=== PATIENT | male | born 1955 | race African-American/Black ===

== ENCOUNTER 2019-09-15 16:37 | Emergency (ER) | payer OTHER ==
--- NOTE | 2019-09-15 16:49 | PDOC ---
Rapid Medical Evaluation Chief Complaint: Blood Pressure Problem Time Seen by Provider: 09/15/19 16:46 Medical Evaluation: Allergies Allergy/AdvReac Type Severity Reaction Status Date / Time No Known Allergies Allergy Verified 09/15/19 16:45 09/15/19 16:46 This patient received a in-person evaluation in triage cc/HPI: sent from dental office because of elevated blood pressure during tooth extraction. Complaining of lightheadedness. Non compliance with b/p medication at present due to insurance issue. Took it last 3 weeks ago PE: NAD unlabored breathing no pedal edema orders:none This patient will proceed to ED for further evaluation Discharge Disposition - Diagnosis HTN (hypertension), UTI (urinary tract infection) - Discharge Dispostion Disposition: HOME Condition at time of disposition: Improved - Prescriptions Prescriptions: Amlodipine Besylate 10 mg PO DAILY #30 tablet Cephalexin Monohydrate [Keflex -] 500 mg PO BID 7 Days #14 capsule - Referrals - Patient Instructions Printed Discharge Instructions: Urinary Tract Infection, DI for High Blood Pressure, How to Monitor Your Blood Pressure at Home Additional Instructions: Follow up with your primary care doctor within 3 days regarding your Emergency Room visit. Your care is not complete until you follow up. You have a urinary tract infection. I have prescribed you an antibiotic to take. Take as advised on label. Do not stop early even if you are feeling better. Call your doctor about refilling your prescription. In the mean time I have sent you a short term prescription for your Amlodipine. 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 If your doctor does not respond via phone you should go to the office. Measure your blood pressure morning and night at the same times every day. Record these measurements in a diary and bring this diary to your primary care doctor. This is a much more accurate method of measuring your blood pressure. Return to the Emergency Department for increasing pain, increasing headache, fever, vomiting, chest pain, shortness of breath, increasing lower extremity swelling, blood in urine, weakness, numbness, tingling, visual changes, feeling off-balance or any other new, worsening or concerning symptoms. - Post Discharge Activity Work/School Note: Back to Work
[2019-09-15 16:50] VITALS: PULSE 93; TEMP 98.5; BMI 24.7
[2019-09-15] MEDS ORDERED: amLODIPine BESYLATE 10 MG TABLET (FP) PO ONE (17:14)
--- NOTE | 2019-09-15 17:14 | PDOC ---
History of Present Illness - General Chief Complaint: Blood Pressure Problem Stated Complaint: HYPERTENSION Time Seen by Provider: 09/15/19 16:46 History Source: Patient Exam Limitations: No Limitations - History of Present Illness Initial Comments: 63-year-old male with past medical history of hypertension presented to the emergency department for a hypertensive episode while at the dentist today. Pt reported he had a planned molar extraction today and while attempting to pull out one of the teeth he felt an intense amount of pain and had a hypertensive episode with systolics 180s. This concerned the dentist, prompting them to send him to the emergency department. Patient reported he was asymptomatic at the time, but shortly after that developed lightheadedness but she still feeling now. Patient reported he has been unable to access his antihypertensive medication for the last three weeks, because his primary care doctor has not been responding to him in response to a refill. He reported he is taking Amlodipine 10 mg a day, recently was taken off propranolol x4 months ago. He denied chest pain, shortness of breath, abdominal pain, back pain, lower extremity swelling, headache. ROS General: denied fever, chills, generalized weakness. HEENT: denied sore throat, rhinorrhea, ear pain. Cardiovascular: admitted to [facility]. denied chest pain, palpitations, syncope, diaphoresis. Respiratory: denied shortness of breath, cough, sputum production, hemoptysis. Gastrointestinal: denied abdominal pain, nausea, vomiting, diarrhea, constipation, blood in stool. Genitourinary: denied dysuria, increased urinary frequency, hematuria, urinary incontinence, flank pain. Back: denied back pain. Musculoskeletal: denied joint pain, muscle pain, joint swelling. Neurological: denied headache, dizziness, numbness, tingling, weakness. Integumentary: denied rash, laceration, abrasion. Hematologic/Lymphatic: denied bruising or bleeding. PE Constitutional: Well-nourished, Well-developed, appearing stated age. HEENT: head is normocephalic, atraumatic. EOMI. PERRLA. Neck: supple. Full ROM. Cardiovascular: regular heart rhythm. no murmurs. no pericardial friction rub. Respiratory: clear to auscultation bilaterally. no crackles, rhonchi or wheezing. no stridor. Gastrointestinal: soft, nontender. normal bowel sounds. no rebound, guarding, masses. Extremities: peripheral pulses intact. no lower extremity edema. Neurological: CN 2-12 grossly intact. moves all four extremities. Psych: awake, alert, oriented x3. follows commands. answers questions appropriately. Past History - Past Medical History Allergies/Adverse Reactions: Allergies Allergy/AdvReac Type Severity Reaction Status Date / Time No Known Allergies Allergy Verified 09/15/19 16:45 Home Medications: Ambulatory Orders Amlodipine Besylate 10 mg PO DAILY #30 tablet 09/15/19 Amlodipine Besylate [Norvasc -] 10 mg PO DAILY 09/15/19 Atorvastatin Calcium [Lipitor] 20 mg PO HS 09/15/19 Cephalexin Monohydrate [Keflex -] 500 mg PO BID 7 Days #14 capsule 09/15/19 Naproxen Sodium [Aleve] 220 mg PO ONCE 09/15/19 - Psycho Social/Smoking Cessation Hx Hx Alcohol Use: No Drug/Substance Use Hx: No *Physical Exam - Vital Signs Last Vital Signs Temp Pulse Resp BP Pulse Ox 98.5 F 93 H 18 159/110 H 95 09/15/19 16:46 09/15/19 16:46 09/15/19 16:46 09/15/19 16:46 09/15/19 16:46 ED Treatment Course - LABORATORY CBC & Chemistry Diagram: 09/15/19 17:30 09/15/19 18:30 - RADIOLOGY Radiology Studies Ordered: Category Date Time Status CHEST PA & LAT [RAD] Stat Radiology 09/15/19 17:00 Ordered Medical Decision Making - Medical Decision Making 64 year old male with above PMH sent to ED from Dentist Office for HTN episode, now complains of lightheadedness. Initial Vital Signs Temp Pulse Resp BP Pulse Ox 98.5 F 93 H 18 159/110 H 95 09/15/19 16:46 09/15/19 16:46 09/15/19 16:46 09/15/19 16:46 09/15/19 16:46 Afebrile. No tachycardia. No tachypnea. Hypertensive. No hypoxia on room air. EKG: rate 70, regular rhythm, normal axis, normal intervals, flat T in aVL otherwise no ST changes. CXR my view: sharp costophrenic angles. no cardiomegaly. no pulmonary vascular congestion. no infiltrate. -Pending official report Labs ordered: CBC, CMP, Mag, troponin, UA Imaging ordered: CXR Medications ordered: Amlodipine 10 mg PO once, Tylenol IV 09/15/19 18:49 Laboratory Last Values WBC 10.6 K/mm3 (4.0-10.0) H 09/15/19 17:30 RBC 4.71 M/mm3 (4.00-5.60) 09/15/19 17:30 Hgb 14.9 GM/dL (11.7-16.9) 09/15/19 17:30 Hct 44.4 % (35.4-49) 09/15/19 17:30 MCV 94.3 fl (80-96) 09/15/19 17:30 MCH 31.7 pg (25.7-33.7) 09/15/19 17:30 MCHC 33.6 g/dl (32.0-35.9) 09/15/19 17:30 RDW 14.0 % (11.9-15.9) 09/15/19 17:30 Plt Count 217 K/MM3 (134-434) 09/15/19 17:30 MPV 9.0 fl (7.5-11.1) 09/15/19 17:30 Absolute Neuts (auto) 7.2 K/mm3 (1.5-8.0) 09/15/19 17:30 Neutrophils % 68.6 % (42.8-82.8) 09/15/19 17:30 Lymphocytes % 18.4 % (8-40) 09/15/19 17:30 Monocytes % 11.3 % (3.8-10.2) H 09/15/19 17:30 Eosinophils % 1.2 % (0-4.5) 09/15/19 17:30 Basophils % 0.5 % (0-2.0) 09/15/19 17:30 Nucleated RBC % 0 % (0-0) 09/15/19 17:30 Magnesium 2.0 mg/dL (1.8-2.4) 09/15/19 17:30 Troponin I < 0.02 ng/ml (0.00-0.05) 09/15/19 17:30 B-Natriuretic Peptide 148.7 pg/ml (5-125) H 09/15/19 17:30 TSH 1.01 uIU/ml (0.358-3.74) 09/15/19 17:30 Urine Color Yellow 09/15/19 18:25 Urine Appearance Clear 09/15/19 18:25 Urine pH 5.0 (5.0-8.0) 09/15/19 18:25 Ur Specific [place] 1.013 (1.010-1.035) 09/15/19 18:25 Urine Protein Negative (NEGATIVE) 09/15/19 18:25 Urine Glucose (UA) Negative (NEGATIVE) 09/15/19 18:25 Urine Ketones Negative (NEGATIVE) 09/15/19 18:25 Urine Blood Negative (NEGATIVE) 09/15/19 18:25 Urine Nitrite Positive (NEGATIVE) H 09/15/19 18:25 Urine Bilirubin Negative (NEGATIVE) 09/15/19 18:25 Urine Urobilinogen 0.2 mg/dL (0.2-1.0) 09/15/19 18:25 Ur Leukocyte Esterase Trace (NEGATIVE) 09/15/19 18:25 Urine WBC (Auto) 13 /hpf (0-5) 09/15/19 18:25 Urine RBC (Auto) 1 /hpf (0-4) 09/15/19 18:25 Urine Casts (Auto) 1 /lpf (0-8) 09/15/19 18:25 U Epithel Cells (Auto) 2.5 /HPF (0-5/HPF) 09/15/19 18:25 Urine Bacteria (Auto) 3884.8 /hpf (NEGATIVE) 09/15/19 18:25 Pt h as UTI. Medications ordered: Keflex 500 mg PO once Labs ordered: Urine culture Vital Signs Blood Pressure 153/77 09/15/19 18:19 HTN improved with home BP medication. Pt informed of results, reported he does get UTIs from time to time, last was x1 year ago. He reported feeling more tired than usual this last weekend. 09/15/19 20:01 CMP Sodium 136 mmol/L (136-145) 09/15/19 18:30 Potassium 5.3 mmol/L (3.5-5.1) H 09/15/19 18:30 Chloride 104 mmol/L (98-107) 09/15/19 18:30 Carbon Dioxide 24 mmol/L (21-32) 09/15/19 18:30 Anion Gap 8 MMOL/L (8-16) 09/15/19 18:30 BUN 9.0 mg/dL (7-18) 09/15/19 18:30 Creatinine 0.9 mg/dL (0.55-1.3) 09/15/19 18:30 Est GFR (CKD-EPI)AfAm 104.98 09/15/19 18:30 Est GFR (CKD-EPI)NonAf 90.58 09/15/19 18:30 Random Glucose 98 mg/dL (74-106) 09/15/19 18:30 Calcium 9.3 mg/dL (8.5-10.1) 09/15/19 18:30 Magnesium 1.9 mg/dL (1.8-2.4) 09/15/19 18:30 Total Bilirubin 0.4 mg/dL (0.2-1) 09/15/19 18:30 AST 37 U/L (15-37) 09/15/19 18:30 ALT 22 U/L (13-61) 09/15/19 18:30 Alkaline Phosphatase 88 U/L (45-117) 09/15/19 18:30 Troponin I < 0.02 ng/ml (0.00-0.05) 09/15/19 17:30 B-Natriuretic Peptide 148.7 pg/ml (5-125) H 09/15/19 17:30 Total Protein 7.3 g/dl (6.4-8.2) 09/15/19 18:30 Albumin 3.9 g/dl (3.4-5.0) 09/15/19 18:30 TSH 1.01 uIU/ml (0.358-3.74) 09/15/19 17:30 Pt informed of results, reported symptoms improved, requesting discharge. Pt discharged with Amlodipine 10 mg PO daily x1 month, encouraged to call or visit his PCP, and prescribed Keflex for UTI. Pt expressed understanding and agreed with plan for care. Discharge - Discharge Information Problems reviewed: Yes Clinical Impression/Diagnosis: HTN (hypertension), UTI (urinary tract infection) Condition: Improved Disposition: HOME - Admission No - Additional Discharge Information Prescriptions: Amlodipine Besylate 10 mg PO DAILY #30 tablet Cephalexin Monohydrate [Keflex -] 500 mg PO BID 7 Days #14 capsule - Follow up/Referral - Patient Discharge Instructions Patient Printed Discharge Instructions: Urinary Tract Infection, DI for High Blood Pressure, How to Monitor Your Blood Pressure at Home Additional Instructions: Follow up with your primary care doctor within 3 days regarding your Emergency Room visit. Your care is not complete until you follow up. You have a urinary tract infection. I have prescribed you an antibiotic to take. Take as advised on label. Do not stop early even if you are feeling better. Call your doctor about refilling your prescription. 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 If your doctor does not respond via phone you should go to the office. Measure your blood pressure morning and night at the same times every day. Record these measurements in a diary and bring this diary to your primary care doctor. This is a much more accurate method of measuring your blood pressure. Return to the Emergency Department for increasing pain, increasing headache, fever, vomiting, chest pain, shortness of breath, increasing lower extremity swelling, blood in urine, weakness, numbness, tingling, visual changes, feeling off-balance or any other new, worsening or concerning symptoms. - Post Discharge Activity Work/Back to School Note: Back to Work
[2019-09-15] MEDS ORDERED: ACETAMINOPHEN 1000 MG/100 ML VIAL (NON FORMULARY) IVPB ONE (17:15)
--- NOTE | 2019-09-15 17:15 | PDOC ---
Documentation entered by Renee Gomez SCRIBE, acting as scribe for Kymberly Kapoor MD. Kymberly Kapoor MD: This documentation has been prepared by the Jason maldonado Brenda, SCRIBE, under my direction and personally reviewed by me in its entirety. I confirm that the documentation accurately reflects all work, treatment, procedures, and medical decision making performed by me. Attending Attestation - Resident Resident Name: ReidCyndy - ED Attending Attestation I have performed the following: I have examined & evaluated the patient, The case was reviewed & discussed with the resident, I agree w/resident's findings & plan, Exceptions are as noted - HPI HPI: The patient is a 63 year old male, with a significant PMH of HTN who presents to the emergency department [facility] for being hypertensive while at the dentist today for a tooth extraction, sent by Dentist for HTN. Patient states that while attempting to extra the tooth, he felt an intense amount of pain, at which point his BP went to 180. Patient also endorses lightheadedness after the episode. The patient denies chest pain, shortness of breath. Denies fever, chills, nausea , vomiting, diarrhea and constipation. Denies dysuria, frequency, urgency and hematuria. Allergies: NKA Social history: No reported smoking or alcohol/illicit drug use. - Physicial Exam PE: 09/15/19 17:29 Agree with resident's exam. - Medical Decision Making 09/15/19 17:36 64-year-old male with a long history of hypertension was referred from the dentist office because of systolic blood pressure was 180 Patient had received local anesthetic to have a maxillary premolar extracted. Patient was distressed because the dentist was unable to numb him sufficiently to extract the tooth. Patient also takes amlodipine but has not for the past 3 weeks because he has been unable to renew his prescription. Patient does not have chest pain, exertional dyspnea, nausea vomiting visual changes or severe headache EKG is normal sinus rhythm, QTC [address] elevations or depressions. 09/15/19 18:02 basic labs,to look at renal function,if normal will d/c home 09/15/19 18:49
[2019-09-15] MEDS ORDERED: amLODIPine BESYLATE 5 MG TABLET (FP) ONE (17:26)
[2019-09-15] MEDS ORDERED: ACETAMINOPHEN INJECTION 100 ML IVPB ONE (17:26)
[2019-09-15 17:50] LABS: BASO % 0.5 % (0-2.0); EOS % 1.2 % (0-4.5); HEMATOCRIT 44.4 % (35.4-49); HEMOGLOBIN 14.9 GM/dL (11.7-16.9); LYMPH % 18.4 % (8-40); MCH 31.7 pg (25.7-33.7); MCHC 33.6 g/dl (32.0-35.9); MEAN CELL VOLUME 94.3 fl (80-96); MONO % 11.3 % (3.8-10.2); NEUT % 68.6 % (42.8-82.8); PLATELET COUNT 217 K/MM3 (134-434); RBC 4.71 M/mm3 (4.00-5.60); WHITE BLOOD COUNT 10.6 K/mm3 (4.0-10.0)
[2019-09-15 18:19] VITALS: BP 153/77
[2019-09-15 18:38] LABS: EPI CELLS 2.5 /HPF (0-5/HPF); HYALINE CASTS 1 /lpf (0-8); URINE APPEARANCE CLEAR; URINE BACTERIA 3884.8 /hpf (NEGATIVE); URINE BILIRUBIN NEGATIVE (NEGATIVE); URINE COLOR YELLOW; URINE GLUCOSE (UA) NEGATIVE (NEGATIVE); URINE KETONE NEGATIVE (NEGATIVE); URINE LEUK ESTERASE TRACE (NEGATIVE); URINE NITRITE POSITIVE (NEGATIVE); URINE PROTEIN NEGATIVE (NEGATIVE); URINE RBC 1 /hpf (0-4); URINE UROBILINOGEN 0.2 mg/dL (0.2-1.0); URINE WBC 13 /hpf (0-5)
[2019-09-15 18:40] LABS: N-TERMINAL BNP 148.7 pg/ml (5-125)
[2019-09-15] MEDS ORDERED: CEPHALEXIN MONOHYDRATE 500 MG CAPSULE (UD) PO ONE (18:48)
[2019-09-15] MEDS ORDERED: CEPHALEXIN MONOHYDRATE 500 MG CAPSULE (UD) ONE (18:59)
[2019-09-15 19:50] LABS: ALBUMIN 3.9 g/dl (3.4-5.0); ALK PHOS 88 U/L (45-117); ANION GAP 8 MMOL/L (8-16); BILIRUBIN,TOTAL 0.4 mg/dL (0.2-1); CALCIUM 9.3 mg/dL (8.5-10.1); CHLORIDE 104 mmol/L (98-107); CO2 24 mmol/L (21-32); CREATININE 0.9 mg/dL (0.55-1.3); GLUCOSE,RANDOM 98 mg/dL (74-106); MAGNESIUM 1.9 mg/dL (1.8-2.4); POTASSIUM 5.3 mmol/L (3.5-5.1); SGOT/AST 37 U/L (15-37); SGPT/ALT 22 U/L (13-61); SODIUM 136 mmol/L (136-145); TOT PROT 7.3 g/dl (6.4-8.2)
--- NOTE | 2019-09-16 09:45 | EKG ---
Test Reason : Blood Pressure : / mmHG Vent. Rate : 070 BPM Atrial Rate : 070 BPM P-R Int : 138 ms QRS Dur : 072 ms QT Int : 402 ms P-R-T Axes : 047 -09 060 degrees QTc Int : 434 ms NORMAL SINUS RHYTHM SEPTAL INFARCT , AGE UNDETERMINED POSSIBLE INFERIOR INFARCT , AGE UNDETERMINED ABNORMAL ECG NO PREVIOUS ECGS AVAILABLE Confirmed by MD Alfaro Daniel ([id number]) on 09/16/2019 9:45:22 AM Referred By: Confirmed By:Mo Alfaro MD
== END 2019-09-15 20:13 | disposition home or self-care (01) ==
LOC: JER 16:37
PROC: 3E033NZ Introduction of Analgesics, Hypnotics, Sedatives into Peripheral Vein, Percutaneous Approach (ICD-10-PCS; principal; 2019-09-15)
DX: I10 Essential (primary) hypertension (principal); N39.0 Urinary tract infection, site not specified
CPT/HCPCS: 36415; 71046-TC-FY; 80053; 81003; 83735; 83880; 84443; 84484; 85025; 93005; 93010; 99283-25; J0131